=== PATIENT | female | born 2000 | race Caucasian/White ===

== ENCOUNTER → 2023-03-16 13:41 | Outpatient (BNVA) | payer OTHER, SELFPAY | PROVIDERS: Family Provider Internal Medicine; PCP Family Medicine; Visit Provider Family Medicine | DX: R53.83 Other fatigue (principal); R63.5 Abnormal weight gain; F41.9 Anxiety disorder, unspecified | CPT/HCPCS: 80053; 82306; 82607; 84439; 84443; 84481; 85025 ==

== ENCOUNTER → 2024-02-08 15:11 | Outpatient (BNVA) | payer BC, SELFPAY | PROVIDERS: Family Provider Internal Medicine; PCP Family Medicine; Visit Provider Family Medicine | DX: R25.1 Tremor, unspecified (principal); F41.9 Anxiety disorder, unspecified; R63.5 Abnormal weight gain | CPT/HCPCS: 80053; 83036 ==